=== PATIENT | male | born 1980 | race Caucasian/White ===

== ENCOUNTER 2017-01-20 17:03 | Emergency (ER) | payer BC ==
[2017-01-20] MEDS ORDERED: Sodium Chloride 0.9% 2.5 ML Syringe FLUSH PRN (17:20)
[2017-01-20] MEDS ORDERED: Sodium Chloride 0.9% 10 ML Syringe FLUSH PRN (17:20)
[2017-01-20] MEDS ORDERED: Ondansetron 4 MG/2 ML SDV IVPUSH ONE (17:20)
[2017-01-20] MEDS ORDERED: Sodium Chloride 0.9% 1,000 ML IV ONE (17:20)
--- NOTE | 2017-01-20 17:23 | EDM.PDOC ---
ED HPI GENERAL MEDICAL PROBLEM - General Chief Complaint: Gastrointestinal Problem Stated Complaint: DEHYDRATED/SICK Time Seen by Provider: 01/20/17 17:21 Source of Information: Reports: Patient History Limitations: Reports: No Limitations - History of Present Illness INITIAL COMMENTS - FREE TEXT/NARRATIVE: HISTORY AND PHYSICAL: []36-year-old male presenting with history of 6 days diarrhea History of Present Illness: []Patient has been ill for 6 days of worst pain the last 2. He has been able to keep a little bit of fluid down He has been coughing He states he aches all over Review of Systems: As per history of present illness and below otherwise all systems reviewed and negative. Past medical history: As per history of present illness and as reviewed below otherwise noncontributory. Surgical history: As per history of present illness and as reviewed below otherwise noncontributory. Social history: No reported history of drug or alcohol abuse. Family history: As per history of present illness and as reviewed below otherwise noncontributory. Physical exam: HEENT: Atraumatic, normocehpalic, pupils reactive, negative for conjunctival pallor or scleral icterus, mucous membranes moist, throat clear, neck supple, nontender, trachea midline. Lungs: Clear to auscultation, breath sounds equal bilaterally, chest non tender. Heart: S1S2, regular, negative for clicks, rubs, or JVD. Abdomen: Soft, nondistended, nontender. Negative for masses or hepatossplenmegaly. Negative for costovertebral tenderness. Pelvis: Stable nontender. Genitourinary: Deferred. Rectal: Deferred Extremities: Atraumatic, negative for cords or calf pain. Neurovascular unremarkable. Neuro: Awake, alert, oriented. Cranial nerves II through XII unremarkable. Cerebellum unremarkable. Motor and sensory unremarkable throughout. Exam nonfocal. Diagnostics: [CBC CMP influenza] Therapeutics: [1 L IV fluid Zofran Bentyl] Impression: [Gastroenteritis] Plan: [Discharged home Keep hydrated with sips of fluid every 20 minutes Perception for Bentyl Prescription given for Zofran] Definitive disposition and diagnosis as appropriate pending reevaluation and review of above. Onset: Sudden Duration: Day(s): (6) Location: Reports: Abdomen Generalized Pain Score (Numeric/FACES): 8 - Related Data Allergies Allergy/AdvReac Type Severity Reaction Status Date / Time Penicillins Allergy Rash Verified 01/20/17 17:15 Home Meds: Home Meds Dicyclomine [Bentyl] 20 mg PO TID PRN #12 tablet 01/20/17 [Rx] Ondansetron [Zofran ODT] 4 mg PO Q8H #12 tab.dis 01/20/17 [Rx] Zolpidem Tartrate [Ambien] 5 mg PO BEDTIME PRN 01/20/17 [History] Past Medical History - Past Health History Medical/Surgical History: Denies Medical/Surgical History Social & Family History - Family History Family Medical History: Noncontributory - Tobacco Use Smoking Status *Q: Current Every Day Smoker Years of Tobacco use: 20 Packs/Tins Daily: 1 - Caffeine Use Caffeine Use: Reports: Coffee Other Caffeine Use: occasional - Recreational Drug Use Recreational Drug Use: No ED ROS GENERAL - Review of Systems Review Of Systems: ROS reveals no pertinent complaints other than HPI. ED EXAM, GI/ABD - Physical Exam Exam: See Below (see dictation) Course - Vital Signs Last Recorded V/S: Last Vital Signs Temp 36.3 C 01/20/17 17:12 Pulse 109 H 01/20/17 17:12 Resp 18 01/20/17 17:12 BP 135/102 H 01/20/17 17:12 Pulse Ox 96 01/20/17 17:12 - Orders/Labs/Meds Orders: Active Orders 24 hr Category Date Time Status CULTURE URINE [RM] Stat Lab 01/20/17 17:20 Uncollected DRUG SCREEN, URINE [URCHEM] Stat Lab 01/20/17 17:20 Uncollected UA W/MICROSCOPIC [URIN] Stat Lab 01/20/17 17:20 Uncollected Dicyclomine [Bentyl] Med 01/20/17 18:23 Once 20 mg PO ONETIME ONE Sodium Chloride 0.9% [Saline Flush] Med 01/20/17 17:20 Active 10 ml FLUSH ASDIRECTED PRN Sodium Chloride 0.9% [Saline Flush] Med 01/20/17 17:20 Active 2.5 ml FLUSH ASDIRECTED PRN Saline Lock Insert [OM.PC] Stat Oth 01/20/17 17:20 Ordered Medication Orders Sodium Chloride (Saline Flush) 10 ml FLUSH ASDIRECTED PRN PRN Reason: Keep Vein Open Sodium Chloride (Saline Flush) 2.5 ml FLUSH ASDIRECTED PRN PRN Reason: Keep Vein Open Labs: Laboratory Tests 01/20/17 01/20/17 Range/Units 17:29 17:29 WBC 9.76 (4.0-11.0) K/uL RBC 5.17 (4.50-5.90) M/uL Hgb 16.0 (13.0-17.0) g/dL Hct 44.7 (38.0-50.0) % MCV 86.5 (80.0-98.0) fL MCH 30.9 (27.0-32.0) pg MCHC 35.8 (31.0-37.0) g/dL RDW Std Deviation 40.1 (28.0-62.0) fl RDW Coeff of Carlie 13 (11.0-15.0) % Plt Count 303 (150-400) K/uL MPV 10.10 (7.40-12.00) fL Neut % (Auto) 61.6 (48.0-80.0) % Lymph % (Auto) 32.0 (16.0-40.0) % [place] % (Auto) 5.4 (0.0-15.0) % Eos % (Auto) 0.8 (0.0-7.0) % Baso % (Auto) 0.2 (0.0-1.5) % Neut # (Auto) 6.0 H (1.4-5.7) K/uL Lymph # (Auto) 3.1 H (0.6-2.4) K/uL [place] # (Auto) 0.5 (0.0-0.8) K/uL Eos # (Auto) 0.1 (0.0-0.7) K/uL Baso # (Auto) 0.0 (0.0-0.1) K/uL Nucleated RBC % 0.0 /100WBC Nucleated RBCs # 0 K/uL Sodium 143 (136-146) mmol/L Potassium 3.3 L (3.5-5.1) mmol/L Chloride 110 (98-110) mmol/L Carbon Dioxide 23 (21-31) mmol/L BUN 8 (6.0-23.0) mg/dL Creatinine 0.9 (0.6-1.5) mg/dL Est Cr Clr Drug Dosing 136.92 mL/min Estimated GFR (MDRD) > 60.0 ml/min Glucose 152 H (60-110) mg/dL Calcium 10.1 (8.8-10.8) mg/dL Total Bilirubin 0.5 (0.1-1.5) mg/dL AST 24 (5-40) IU/L ALT 27 (8-54) IU/L Alkaline Phosphatase 65 (40-150) Total Protein 7.4 (6.0-8.0) g/dL Albumin 4.7 (3.5-5.0) g/dL Globulin 2.7 (2.0-3.5) g/dL Albumin/Globulin Ratio 1.7 (1.3-2.8) Meds: Medications Generic Name Dose Route Start Last Admin Trade Name Freq PRN Reason Stop Dose Admin Sodium Chloride 10 ml 01/20/17 17:20 Saline Flush FLUSH ASDIRECTED PRN Keep Vein Open Sodium Chloride 2.5 ml 01/20/17 17:20 Saline Flush FLUSH ASDIRECTED PRN Keep Vein Open Discontinued Medications Generic Name Dose Route Start Last Admin Trade Name Freq PRN Reason Stop Dose Admin Sodium Chloride 1,000 mls @ 999 mls/hr 01/20/17 17:20 01/20/17 17:32 Normal Saline IV 01/20/17 18:20 999 mls/hr STAT ONE Administration Ondansetron HCl 4 mg 01/20/17 17:20 01/20/17 17:36 Zofran IVPUSH 01/20/17 17:21 4 mg ONETIME ONE Administration Departure - Departure Time of Disposition: 18:24 Disposition: Home, Self-Care 01 Condition: Good Clinical Impression: Gastroenteritis - Discharge Information Prescriptions: Dicyclomine [Bentyl] 20 mg PO TID PRN #12 tablet PRN Reason: Cramping Ondansetron [Zofran ODT] 4 mg PO Q8H #12 tab.dis Referrals: PCP,None [Primary Care Provider] - Forms: ED Department Discharge Additional Instructions: The following information is given to patients seen in the emergency department who are being discharged to home. This information is to outline your options for follow-up care. We provide all patients seen in our emergency department with a follow-up referral. The need for follow-up, as well as the timing and circumstances, are variable depending upon the specifics of your emergency department visit. If you don't have a primary care physician on staff, we will provide you with a referral. We always advise you to contact your personal physician following an emergency department visit to inform them of the circumstance of the visit and for follow-up with them and/or the need for any referrals to a consulting specialist. The emergency department will also refer you to a specialist when appropriate. This referral assures that you have the opportunity for followup care with a specialist. All of these measure are taken in an effort to provide you with optimal care, which includes your followup. Under all circumstances we always encourage you to contact your private physician who remains a resource for coordinating your care. When calling for followup care, please make the office aware that this follow-up is from your recent emergency room visit. If for any reason you are refused follow-up, please contact the [facility] emergency department at and asked to speak to the emergency department charge nurse. Prescriptions have been given to for nausea and for abdominal cramping these have been sent electronically to your pharmacy Home and rest Sips of fluid every 20 minutes to keep hydrated Follow-up with your primary care next week - My Orders Last 24 Hours: My Active Orders 01/20/17 17:20 CULTURE URINE [RM] Stat DRUG SCREEN, URINE [URCHEM] Stat UA W/MICROSCOPIC [URIN] Stat Sodium Chloride 0.9% [Saline Flush] 10 ml FLUSH ASDIRECTED PRN Sodium Chloride 0.9% [Saline Flush] 2.5 ml FLUSH ASDIRECTED PRN Saline Lock Insert [OM.PC] Stat 01/20/17 18:23 Dicyclomine [Bentyl] 20 mg PO ONETIME ONE - Assessment/Plan Last 24 Hours: My Active Orders 01/20/17 17:20 CULTURE URINE [RM] Stat DRUG SCREEN, URINE [URCHEM] Stat UA W/MICROSCOPIC [URIN] Stat Sodium Chloride 0.9% [Saline Flush] 10 ml FLUSH ASDIRECTED PRN Sodium Chloride 0.9% [Saline Flush] 2.5 ml FLUSH ASDIRECTED PRN Saline Lock Insert [OM.PC] Stat 01/20/17 18:23 Dicyclomine [Bentyl] 20 mg PO ONETIME ONE
[2017-01-20 17:58] LABS: CHLORIDE,CL 110 mmol/L (98-110); SODIUM,NA 143 mmol/L (136-146)
[2017-01-20] MEDS ORDERED: Dicyclomine 10 MG Cap PO ONE (18:23)
[2017-01-20 18:46] VITALS: BP 135/89
== END 2017-01-20 18:40 | disposition home or self-care (01) ==
LOC: MW.ED 17:03
DX: K52.9 Noninfective gastroenteritis and colitis, unspecified (principal); F17.210 Nicotine dependence, cigarettes, uncomplicated
CPT/HCPCS: 36415; 80053; 85025; 87804; 96361; 96374; 99283; A9270; J2405; J7040

== ENCOUNTER 2017-05-10 10:17 | Day surgery (SDC) | payer BC ==
[2017-05-10] MEDS ORDERED: Sodium Chloride 0.9% 2.5 ML Syringe FLUSH PRN (10:47)
[2017-05-10] MEDS ORDERED: Sodium Chloride 0.9% 10 ML Syringe FLUSH PRN (10:47)
[2017-05-10] MEDS ORDERED: Ketorolac 30 MG/ML SDV IVPUSH ONE (10:48)
[2017-05-10] MEDS ORDERED: Ondansetron 4 MG/2 ML SDV IVPUSH ONE (10:48)
[2017-05-10] MEDS ORDERED: Sodium Chloride 0.9% 1,000 ML IV ONE (10:48)
[2017-05-10] MEDS ORDERED: Morphine 2 MG/ML Syringe IVPUSH ONE (10:48)
--- NOTE | 2017-05-10 10:51 | EDM.PDOC ---
ED HPI GENERAL MEDICAL PROBLEM - General Chief Complaint: Gastrointestinal Problem Stated Complaint: VOMITTING Time Seen by Provider: 05/10/17 10:44 - History of Present Illness INITIAL COMMENTS - FREE TEXT/NARRATIVE: HISTORY AND PHYSICAL: History of present illness: The patient is a 36-year-old male with no GI history and no abdominal surgical history who presents with a three-day history of abdominal cramping and watery stools and has now progressed to intractable vomiting today. Patient said he has had nausea for the prior 2 days but today starting last evening he was having intractable nausea and vomiting. He says he has been vomiting so much that he since eating some streaks of blood but not copious blood or clots. The diarrhea has not been black or bloody. He has abdominal cramping which is in the middle part of his abdomen is benign ongoing with the diarrhea. He has felt hot but has not taken his temperature at home and he has had no upper respiratory symptoms no chest pain no shortness of breath no flank pain or urinary issues. He denies any ill contacts recent travel or new foods. Review of systems: As per history of present illness and below otherwise all systems reviewed and negative. Past medical history: As per history of present illness and as reviewed below otherwise noncontributory. Surgical history: As per history of present illness and as reviewed below otherwise noncontributory. Social history: No reported history of drug or alcohol abuse. Family history: As per history of present illness and as reviewed below otherwise noncontributory. Physical exam: Gen.: Well-developed thin man who is nontoxic and looks somewhat uncomfortable in the room but is speaking clearly and easily and vital signs have been reviewed by me HEENT: Atraumatic, normocephalic, pupils reactive, negative for conjunctival pallor or scleral icterus, mucous membranes tacky, throat clear, neck supple, nontender, trachea midline. Lungs: Clear to auscultation, breath sounds equal bilaterally, chest nontender. Heart: S1S2, regular, negative for clicks, rubs, or JVD. Abdomen: Soft, nondistended, mild mid abdominal pain on deep palpation without rebound or guarding and bowel sounds are slightly hyperactive Negative for masses or hepatosplenomegaly. Pelvis: Stable nontender. Genitourinary: Deferred. Rectal: Deferred. Extremities: Atraumatic, negative for cords or calf pain. Neurovascular unremarkable. Neuro: Awake, alert, oriented. Cranial nerves II through XII unremarkable. Cerebellum unremarkable. Motor and sensory unremarkable throughout. Exam nonfocal. Diagnostics: CBC CMP amylase lipase UA CT scan of the abdomen and pelvis Therapeutics: IV fluids Zofran Toradol morphine Dilaudid Please note the patient has not had any vomiting or diarrhea while in the ED but still complains of persistent abdominal cramping despite morphine and Toradol. I will give a dose of Dilaudid and perform CT scan of the abdomen and pelvis. We will start giving the patient a popsicle once he returns from CT Patient continues to feel improved. I have received the CAT scan results indicating an acute appendicitis without rupture and I have discussed these results with the patient and also with Dr. Rooney our surgeon on-call at [phone]. He wants the patient admitted to same-day surgery and given maintenance IV fluids and Mefoxin. Patient has not had anything to eat or drink today. Impression: Vomiting and diarrhea with abdominal cramping, acute appendicitis Definitive disposition and diagnosis as appropriate pending reevaluation and review of above. lower abdominal Pain Score (Numeric/FACES): 7 - Related Data Allergies Allergy/AdvReac Type Severity Reaction Status Date / Time Penicillins Allergy Rash Verified 05/10/17 10:22 Home Meds: Home Meds Zolpidem Tartrate [Ambien] 5 mg PO BEDTIME PRN 01/20/17 [History] Past Medical History - Past Health History Medical/Surgical History: Denies Medical/Surgical History - Infectious Disease History Infectious Disease History: Reports: Chicken Pox Social & Family History - Family History Family Medical History: Noncontributory - Tobacco Use Smoking Status *Q: Current Every Day Smoker Years of Tobacco use: 15 Packs/Tins Daily: 1 - Caffeine Use Caffeine Use: Reports: Energy Drinks Other Caffeine Use: occasional - Recreational Drug Use Recreational Drug Use: No ED ROS GENERAL - Review of Systems Review Of Systems: ROS reveals no pertinent complaints other than HPI. ED EXAM, GENERAL - Physical Exam Exam: See Below (See dictation) Course - Vital Signs Last Recorded V/S: Last Vital Signs Temp 36.2 C 05/10/17 10:24 Pulse 84 05/10/17 10:24 Resp 18 05/10/17 10:24 BP 139/81 05/10/17 10:24 Pulse Ox 97 05/10/17 10:24 - Orders/Labs/Meds Orders: Active Orders 24 hr Category Date Time Status Patient Status [ADT] Stat ADT 05/10/17 13:34 Ordered Communication Order [RC] STAT Care 05/10/17 10:48 Active Lactated Ringers @ 150 MLS/HR(1,000ml) Med 05/10/17 13:45 Ordered Lactated Ringers [Ringers, Lactated] 1,000 ml IV ASDIRECTED Sodium Chloride 0.9% [Saline Flush] Med 05/10/17 10:47 Active 10 ml FLUSH ASDIRECTED PRN Sodium Chloride 0.9% [Saline Flush] Med 05/10/17 10:47 Active 2.5 ml FLUSH ASDIRECTED PRN cefOXitin [Mefoxin in Dextrose,Iso-Osm 1 GM/50 ML] 1 gm Med 05/10/17 13:34 Ordered Premix Bag 1 bag IV ONETIME Saline Lock Insert [OM.PC] Stat Oth 05/10/17 10:47 Ordered Medication Orders Lactated Ringer's (Ringers, Lactated) 1,000 mls @ 150 mls/hr IV ASDIRECTED JOSE Sodium Chloride (Saline Flush) 10 ml FLUSH ASDIRECTED PRN PRN Reason: Keep Vein Open Sodium Chloride (Saline Flush) 2.5 ml FLUSH ASDIRECTED PRN PRN Reason: Keep Vein Open Labs: Laboratory Tests 05/10/17 05/10/17 05/10/17 Range/Units 10:35 11:03 11:03 WBC 11.16 H (4.0-11.0) K/uL RBC 5.11 (4.50-5.90) M/uL Hgb 15.6 (13.0-17.0) g/dL Hct 43.1 (38.0-50.0) % MCV 84.3 (80.0-98.0) fL MCH 30.5 (27.0-32.0) pg MCHC 36.2 (31.0-37.0) g/dL RDW Std Deviation 37.3 (28.0-62.0) fl RDW Coeff of Carlie 12 (11.0-15.0) % Plt Count 290 (150-400) K/uL MPV 10.00 (7.40-12.00) fL Neut % (Auto) 76.8 (48.0-80.0) % Lymph % (Auto) 18.8 (16.0-40.0) % [place] % (Auto) 3.8 (0.0-15.0) % Eos % (Auto) 0.4 (0.0-7.0) % Baso % (Auto) 0.2 (0.0-1.5) % Neut # (Auto) 8.6 H (1.4-5.7) K/uL Lymph # (Auto) 2.1 (0.6-2.4) K/uL [place] # (Auto) 0.4 (0.0-0.8) K/uL Eos # (Auto) 0.0 (0.0-0.7) K/uL Baso # (Auto) 0.0 (0.0-0.1) K/uL Nucleated RBC % 0.0 /100WBC Nucleated RBCs # 0 K/uL Sodium 140 (136-146) mmol/L Potassium 3.7 (3.5-5.1) mmol/L Chloride 108 (98-110) mmol/L Carbon Dioxide 21 (21-31) mmol/L BUN 10 (6.0-23.0) mg/dL Creatinine 0.8 (0.6-1.5) mg/dL Est Cr Clr Drug Dosing 152.76 mL/min Estimated GFR (MDRD) > 60.0 ml/min Glucose 108 (60-110) mg/dL Calcium 9.8 (8.8-10.8) mg/dL Total Bilirubin 0.6 (0.1-1.5) mg/dL AST 25 (5-40) IU/L ALT 25 (8-54) IU/L Alkaline Phosphatase 68 (40-150) Total Protein 7.1 (6.0-8.0) g/dL Albumin 4.4 (3.5-5.0) g/dL Globulin 2.7 (2.0-3.5) g/dL Albumin/Globulin Ratio 1.6 (1.3-2.8) Amylase 45 (10-90) U/L Lipase 17 (7-80) U/L Urine Color YELLOW Urine Appearance CLEAR Urine pH 6.0 (5.0-8.0) Ur Specific [place] 1.010 (1.001-1.035) Urine Protein NEGATIVE (NEGATIVE) mg/dL Urine Glucose (UA) NEGATIVE (NEGATIVE) mg/dL Urine Ketones NEGATIVE (NEGATIVE) mg/dL Urine Occult Blood NEGATIVE (NEGATIVE) Urine Nitrite NEGATIVE (NEGATIVE) Urine Bilirubin NEGATIVE (NEGATIVE) Urine Urobilinogen 0.2 (<2.0) EU/dL Ur Leukocyte Esterase NEGATIVE (NEGATIVE) Urine RBC 0-1 (0-2/HPF) Urine WBC 0-1 (0-5/HPF) Ur Epithelial Cells RARE (NONE-FEW) Urine Bacteria RARE (NEGATIVE) Meds: Medications Generic Name Dose Route Start Last Admin Trade Name Freq PRN Reason Stop Dose Admin Lactated Ringer's 1,000 mls @ 150 mls/hr 05/10/17 13:45 Ringers, Lactated IV ASDIRECTED JOSE Sodium Chloride 10 ml 05/10/17 10:47 Saline Flush FLUSH ASDIRECTED PRN Keep Vein Open Sodium Chloride 2.5 ml 05/10/17 10:47 Saline Flush FLUSH ASDIRECTED PRN Keep Vein Open Discontinued Medications Generic Name Dose Route Start Last Admin Trade Name Freq PRN Reason Stop Dose Admin Hydromorphone HCl 1 mg 05/10/17 12:03 05/10/17 12:09 Dilaudid IVPUSH 05/10/17 12:04 1 mg ONETIME ONE Administration Sodium Chloride 1,000 mls @ 999 mls/hr 05/10/17 10:48 05/10/17 11:09 Normal Saline IV 05/10/17 11:48 999 mls/hr STAT ONE Administration Iopamidol 100 ml 05/10/17 12:46 Isovue Multipack-370 (76%) IVPUSH 05/10/17 12:47 ONETIME STA Ketorolac Tromethamine 30 mg 05/10/17 10:48 05/10/17 11:14 Toradol IVPUSH 05/10/17 10:49 30 mg ONETIME ONE Administration Morphine Sulfate 2 mg 05/10/17 10:48 05/10/17 11:15 Morphine IVPUSH 05/10/17 10:49 2 mg ONETIME ONE Administration Ondansetron HCl 4 mg 05/10/17 10:48 05/10/17 11:14 Zofran IVPUSH 05/10/17 10:49 4 mg ONETIME ONE Administration Departure - Departure Time of Disposition: 13:36 Disposition: Still A Patient 30 Condition: Good Clinical Impression: Vomiting, Diarrhea, Appendicitis - Discharge Information Referrals: PCP,None [Primary Care Provider] - Forms: ED Department Discharge - My Orders Last 24 Hours: My Active Orders 05/10/17 10:47 Sodium Chloride 0.9% [Saline Flush] 10 ml FLUSH ASDIRECTED PRN Sodium Chloride 0.9% [Saline Flush] 2.5 ml FLUSH ASDIRECTED PRN Saline Lock Insert [OM.PC] Stat 05/10/17 10:48 Communication Order [RC] STAT 05/10/17 13:34 Patient Status [ADT] Stat cefOXitin [Mefoxin in Dextrose,Iso-Osm 1 GM/50 ML] 1 gm Premix Bag 1 bag IV ONETIME 05/10/17 13:45 Lactated Ringers @ 150 MLS/HR(1,000ml) Lactated Ringers [Ringers, Lactated] 1, 000 ml IV ASDIRECTED - Assessment/Plan Last 24 Hours: My Active Orders 05/10/17 10:47 Sodium Chloride 0.9% [Saline Flush] 10 ml FLUSH ASDIRECTED PRN Sodium Chloride 0.9% [Saline Flush] 2.5 ml FLUSH ASDIRECTED PRN Saline Lock Insert [OM.PC] Stat 05/10/17 10:48 Communication Order [RC] STAT 05/10/17 13:34 Patient Status [ADT] Stat cefOXitin [Mefoxin in Dextrose,Iso-Osm 1 GM/50 ML] 1 gm Premix Bag 1 bag IV ONETIME 05/10/17 13:45 Lactated Ringers @ 150 MLS/HR(1,000ml) Lactated Ringers [Ringers, Lactated] 1, 000 ml IV ASDIRECTED
[2017-05-10 11:45] LABS: CHLORIDE,CL 108 mmol/L (98-110); SODIUM,NA 140 mmol/L (136-146)
[2017-05-10] MEDS ORDERED: HYDROmorphone 2 MG/ML Syringe IVPUSH ONE ×2 (12:03→14:10)
[2017-05-10] MEDS ORDERED: Iopamidol 755 MG/ML 500 ML Multipack Bottle IVPUSH STA (12:46)
--- NOTE | 2017-05-10 13:24 | CT ---
CT of the abdomen and pelvis with contrast. HISTORY: Pain TECHNIQUE: Axial CT images were obtained of the abdomen and pelvis following administration of 100 mL of Isovue-370 in the right arm without complication. Coronal and sagittal reconstructions obtained. FINDINGS: The lung bases are clear, no pleural effusion. The liver, spleen, adrenal glands, and pancreas appear normal. The gallbladder is normal. No bulky re troperitoneal lymphadenopathy or abdominal ascites. The kidneys enhance and function symmetrically without evidence of obstructive uropathy. The large and small bowel are normal in caliber without evidence of obstruction. The enterocele tip i s thickened measuring up to 1.3 cm. Mild periappendiceal stranding. No adjacent free air or free flui d. The urinary bladder is normal. No bulky pelvic lymphadenopathy No suspicious osseous abnormalities identified. 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 IMPRESSION: 1. Acute appendicitis without evidence of rupture.
[2017-05-10] MEDS ORDERED: cefOXitin 1 GM in Premix Bag 1 BAG IV ONE (13:34)
[2017-05-10] MEDS ORDERED: Lactated Ringers 1,000 ML IV SCH (13:45)
[2017-05-10] MEDS ORDERED: Lidocaine 2% 5 ML SDV ONE (14:31)
[2017-05-10] MEDS ORDERED: Rocuronium 10 MG/ML 10 ML Syringe ONE (14:31)
[2017-05-10] MEDS ORDERED: Ondansetron 4 MG/2 ML SDV ONE (14:31)
[2017-05-10] MEDS ORDERED: Midazolam 1 MG/ML 2 ML SDV ONE (14:32)
[2017-05-10] MEDS ORDERED: Succinylcholine/Normal Saline 200 MG/10 ML Syringe ONE (14:32)
[2017-05-10] MEDS ORDERED: fentaNYL 250 MCG/5 ML SDV ONE (14:32)
[2017-05-10] MEDS ORDERED: Propofol 200 MG/20 ML SDV ONE (14:32)
[2017-05-10] MEDS ORDERED: Bupivacaine 0.5% 10 ML SDV ONE (14:34)
[2017-05-10] MEDS ORDERED: ceFAZolin 1 GM Vial ONE (14:35)
--- NOTE | 2017-05-10 14:39 | PCM.CONS ---
H&P History of Present Illness - General Date of Service: 05/10/17 Admit Problem/Dx: Admission Diagnosis/Problem Admission Diagnosis/Problem Appendicitis Source of Information: Patient History Limitations: Reports: No Limitations - History of Present Illness Onset of Symptoms: Reports: Gradual Symptom Onset Date: 05/09/17 Symptom Onset Time: 20:00 Location: Reports: Abdomen Quality: Reports: Ache, Pressure Improves with: Reports: Rest Worsens with: Reports: Eating, Movement Context: Reports: Sick Contact Associated Symptoms: Reports: Loss of Appetite, Nausea/Vomiting. Denies: Fever/ Chills, Shortness of Breath lower abdominal Pain Score (Numeric/FACES): 7 - Related Data Allergies/Adverse Reactions: Allergies Allergy/AdvReac Type Severity Reaction Status Date / Time Penicillins Allergy Rash Verified 05/10/17 10:22 Home Medications: Home Meds Zolpidem Tartrate [Ambien] 5 mg PO BEDTIME PRN 01/20/17 [History] Past Medical History - Past Health History Medical/Surgical History: Denies Medical/Surgical History - Infectious Disease History Infectious Disease History: Reports: Chicken Pox - Past Surgical History Musculoskeletal Surgical History: Reports: Arthroscopic Procedure, Other (See Below) (Tendon repair left hand. Bilateral partial claviculectomy.) Social & Family History - Family History Family Medical History: Noncontributory - Tobacco Use Smoking Status *Q: Current Every Day Smoker Tobacco Use Within Last Twelve Months: Smokeless Tobacco Years of Tobacco use: 15 Packs/Tins Daily: 1 Used Tobacco, but Quit: No - Caffeine Use Caffeine Use: Reports: Energy Drinks Other Caffeine Use: occasional - Recreational Drug Use Recreational Drug Use: No H&P Review of Systems - Review of Systems: Review Of Systems: See Below General: Reports: Decreased Appetite. Denies: Fever, Chills, Night Sweats HEENT: Reports: No Symptoms Pulmonary: Reports: No Symptoms Cardiovascular: Reports: No Symptoms Gastrointestinal: Reports: Abdominal Pain, Anorexia, Diarrhea, Decreased Appetite, Nausea, Vomiting Genitourinary: Reports: No Symptoms Musculoskeletal: Reports: No Symptoms Skin: Reports: No Symptoms Psychiatric: Reports: No Symptoms Neurological: Reports: No Symptoms Hematologic/Lymphatic: Reports: No Symptoms Immunologic: Reports: No Symptoms Exam - Exam Exam: See Below - Vital Signs Vital Signs: Last Vital Signs Temp 97.1 F 05/10/17 10:24 Pulse 84 05/10/17 10:24 Resp 18 05/10/17 10:24 BP 139/81 05/10/17 10:24 Pulse Ox 97 05/10/17 10:24 Weight: 184 lb 11.958 oz - Exam General: Alert, Oriented, Cooperative, Mild Distress HEENT: Conjunctiva Clear, EOMI, Hearing Intact, PERRLA. No: Scleral Icterus Neck: Supple, Trachea Midline Lungs: Clear to Auscultation, Normal Respiratory Effort Cardiovascular: Regular Rate, Regular Rhythm GI/Abdominal Exam: Normal Bowel Sounds, Soft, No Distention, Rebound, Tender ( RLQ). No: Guarding, Rigid (Male) Exam: No Hernia, Deferred Rectal (Males) Exam: Deferred Back Exam: Normal Inspection Extremities: Normal Inspection, Normal Range of Motion Peripheral Pulses: 4+: Posterior Tibial (L), Posterior Tibial (R), Dorsalis Pedis (L), Dorsalis Pedis (R) Skin: Warm, Dry, Intact Neurological: Cranial Nerves Intact Neuro Extensive - Mental Status: Alert, Oriented x3 Psychiatric: Alert, Normal Affect, Normal Mood - Patient Data Lab Results Last 24 hrs: Laboratory Results - last 24 hr 05/10/17 05/10/17 05/10/17 Range/Units 10:35 11:03 11:03 WBC 11.16 H (4.0-11.0) K/uL RBC 5.11 (4.50-5.90) M/uL Hgb 15.6 (13.0-17.0) g/dL Hct 43.1 (38.0-50.0) % MCV 84.3 (80.0-98.0) fL MCH 30.5 (27.0-32.0) pg MCHC 36.2 (31.0-37.0) g/dL RDW Std Deviation 37.3 (28.0-62.0) fl RDW Coeff of Carlie 12 (11.0-15.0) % Plt Count 290 (150-400) K/uL MPV 10.00 (7.40-12.00) fL Neut % (Auto) 76.8 (48.0-80.0) % Lymph % (Auto) 18.8 (16.0-40.0) % [place] % (Auto) 3.8 (0.0-15.0) % Eos % (Auto) 0.4 (0.0-7.0) % Baso % (Auto) 0.2 (0.0-1.5) % Neut # (Auto) 8.6 H (1.4-5.7) K/uL Lymph # (Auto) 2.1 (0.6-2.4) K/uL [place] # (Auto) 0.4 (0.0-0.8) K/uL Eos # (Auto) 0.0 (0.0-0.7) K/uL Baso # (Auto) 0.0 (0.0-0.1) K/uL Nucleated RBC % 0.0 /100WBC Nucleated RBCs # 0 K/uL Sodium 140 (136-146) mmol/L Potassium 3.7 (3.5-5.1) mmol/L Chloride 108 (98-110) mmol/L Carbon Dioxide 21 (21-31) mmol/L BUN 10 (6.0-23.0) mg/dL Creatinine 0.8 (0.6-1.5) mg/dL Est Cr Clr Drug Dosing 152.76 mL/min Estimated GFR (MDRD) > 60.0 ml/min Glucose 108 (60-110) mg/dL Calcium 9.8 (8.8-10.8) mg/dL Total Bilirubin 0.6 (0.1-1.5) mg/dL AST 25 (5-40) IU/L ALT 25 (8-54) IU/L Alkaline Phosphatase 68 (40-150) Total Protein 7.1 (6.0-8.0) g/dL Albumin 4.4 (3.5-5.0) g/dL Globulin 2.7 (2.0-3.5) g/dL Albumin/Globulin Ratio 1.6 (1.3-2.8) Amylase 45 (10-90) U/L Lipase 17 (7-80) U/L Urine Color YELLOW Urine Appearance CLEAR Urine pH 6.0 (5.0-8.0) Ur Specific [place] 1.010 (1.001-1.035) Urine Protein NEGATIVE (NEGATIVE) mg/dL Urine Glucose (UA) NEGATIVE (NEGATIVE) mg/dL Urine Ketones NEGATIVE (NEGATIVE) mg/dL Urine Occult Blood NEGATIVE (NEGATIVE) Urine Nitrite NEGATIVE (NEGATIVE) Urine Bilirubin NEGATIVE (NEGATIVE) Urine Urobilinogen 0.2 (<2.0) EU/dL Ur Leukocyte Esterase NEGATIVE (NEGATIVE) Urine RBC 0-1 (0-2/HPF) Urine WBC 0-1 (0-5/HPF) Ur Epithelial Cells RARE (NONE-FEW) Urine Bacteria RARE (NEGATIVE) Result Diagrams: 05/10/17 11:03 05/10/17 11:03 Imaging Impressions Last 24 hrs: CT report suggests early nonruptured appendicitis with no fluid collection. There is periappendiceal fat stranding. Consult PN Assessment/Plan Procedures: Procedures COMPLETE CBC W/AUTO DIFF WBC (01/20/17) COMPREHEN METABOLIC PANEL (01/20/17) EMERGENCY DEPT VISIT (01/20/17) HYDRATE IV INFUSION ADD-ON (01/20/17) INFLUENZA ASSAY W/OPTIC (01/20/17) ROUTINE VENIPUNCTURE (01/20/17) THER/PROPH/DIAG INJ IV PUSH (01/20/17) (1) Appendicitis SNOMED Code(s): 24540384 Code(s): K37 - UNSPECIFIED APPENDICITIS Priority: High Current Visit: Yes Problem List Initiated/Reviewed/Updated: Yes My Orders Last 24 Hours: My Active Orders 05/10/17 06:00 Antiembolic Hose [OM.PC] PER UNIT ROUTINE 05/10/17 14:30 Alfred Catheter Insertion [Insert Urinary Catheter] [OM.PC] Q24H Oxygen Therapy [RC] PRN Pulse Oximetry [RC] INTERMITTENT Skin Preparation [RC] .PREOP Urinary Catheter Assessment [RC] ASDIRECTED Vital Signs [RC] PER UNIT ROUTINE Sequential Compression Device [OM.PC] Routine Resuscitation Status Routine 05/10/17 14:31 Antiembolic Devices [RC] PER UNIT ROUTINE Urinary Catheter Assessment [RC] ASDIRECTED 05/10/17 14:45 cefOXitin [Mefoxin in Dextrose,Iso-Osm 1 GM/50 ML] 1 gm Premix Bag 1 bag IV ONETIME 05/10/17 Lunch Nothing Per Oral Diet [DIET] 05/11/17 06:00 Antiembolic Hose [OM.PC] PER UNIT ROUTINE Plan: Laparoscopic appendectomy, possible open appendectomy. Both operative procedures, along with the risks, including, but not limited to, bleeding, infection, pneumonia, deep venous thrombosis, pulmonary emboli, myocardial infarction, and adjacent organ injury have been reviewed with the patient who voices understanding, offers no questions and agrees to proceed.
[2017-05-10] MEDS ORDERED: cefOXitin 1 GM in Premix Bag 1 BAG IV SCH (14:45)
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
[2017-05-10] MEDS ORDERED: cefOXitin 1 GM Vial ONE (17:28)
[2017-05-10] MEDS ORDERED: diphenhydrAMINE 50 MG/ML SDV ONE (17:48)
[2017-05-10] MEDS ORDERED: Dexamethasone 4 MG/ML 5 ML MDV ONE (17:48)
[2017-05-10] MEDS ORDERED: HYDROmorphone 2 MG/ML Syringe ONE ×2 (18:03→18:57)
[2017-05-10] MEDS ORDERED: Ketorolac 30 MG/ML SDV ONE (18:27)
[2017-05-10] MEDS: fentaNYL 100 MCG/2 ML SDV IVPUSH PRN ×2 (18:50→18:55)
[2017-05-10] MEDS ORDERED: Acetaminophen 325 MG Tab PO PRN (18:59)
[2017-05-10] MEDS: HYDROmorphone 2 MG/ML Syringe IVPUSH PRN ×2 (19:00→19:10)
[2017-05-10] MEDS ORDERED: HYDROmorphone 1 MG/ML Syringe IV PRN (19:00)
--- NOTE | 2017-05-10 19:05 | PCM.OPNOTE ---
- General Post-Op/Procedure Note Date of Surgery/Procedure: 05/10/17 Operative Procedure(s): Laparoscopic appendectomy Findings: Acute nonruptured appendicitis Pre Op Diagnosis: Acute abdomen Post-Op Diagnosis: Acute appendicitis Anesthesia Technique: General ET Tube (ASA IIE) Primary Surgeon: Antolin Rooney Fluid Replacement, Intraop: 2,000 Output, Urine Amount: 100 EBL in mLs: 10 Condition: Good Free Text/Narrative:: Intake & Output 05/10/17 05/10/17 05/10/17 03:59 11:59 19:59 Intake Total 40 Output Total 0 Balance 40 Dictation [id number] CPT CODE 44358
--- NOTE | 2017-05-10 19:47 | PCM.POSTAN ---
POST ANESTHESIA ASSESSMENT - MENTAL STATUS Mental Status: Alert, Oriented - VITAL SIGNS Pulse Rate: 59 SaO2: 98 Resp Rate: 14 Blood Pressure: 116/74 - RESPIRATORY Respiratory Status: Respiratory Rate WNL, Airway Patent, O2 Saturation Stable, Supplemental Oxygen - CARDIOVASCULAR CV Status: Pulse Rate WNL, Blood Pressure Stable - GASTROINTESTINAL GI Status: No Symptoms - PAIN Pain Score: 3 (Pt states feeling much better and shoulder pain under control) - POST OP HYDRATION Hydration Status: Adequate & Stable - OBSERVATIONS Free Text/Narrative:: Pt awake and stable. Per his request I spoke with his , Rebecca, and explained his surgery went well and the plan to keep is Alfred catheter overnight. No anesthesia complications.
--- NOTE | 2017-05-10 19:50 | PCM48HPAN ---
Post Anesthesia Note - EVALUATION WITHIN 48HRS OF ANESTHETIC Vital Signs in Normal Range: Yes Patient Participated in Evaluation: Yes Respiratory Function Stable: Yes Airway Patent: Yes Cardiovascular Function Stable: Yes Hydration Status Stable: Yes Pain Control Satisfactory: Yes Nausea and Vomiting Control Satisfactory: Yes Mental Status Recovered: Yes
[2017-05-10] MEDS: Metoclopramide 10 MG/2 ML SDV IVPUSH SCH (20:33)
[2017-05-10] MEDS: Morphine 10 MG/ML Syringe IVPUSH PRN (21:18)
[2017-05-10] MEDS: Lactated Ringers 1,000 ML IV SCH (21:20)
[2017-05-10] MEDS: Acetaminophen/HYDROcodone 325-5 MG Tab PO PRN (21:24)
[2017-05-10] MEDS: cefOXitin 1 GM in Premix Bag 1 BAG IV SCH (21:29)
--- NOTE | 2017-05-10 22:23 | OR ---
SURGEON: Antolin Rooney M.D. DATE OF PROCEDURE: 05/10/2017 OPERATION PERFORMED: Laparoscopic appendectomy. ANESTHESIA: General endotracheal. ASA CLASSIFICATION: IIE. PREOPERATIVE DIAGNOSIS: Acute abdomen. POSTOPERATIVE DIAGNOSIS: Acute appendicitis. INTRAOPERATIVE FLUID REPLACEMENT: 2000 mL of crystalloid. INTRAOPERATIVE URINARY OUTPUT: 100 mL. ESTIMATED BLOOD LOSS: 10 mL. INTRAOPERATIVE CONSULTATION: With Dr. Rubin, for difficulty passing the Alfred catheter. DESCRIPTION OF PROCEDURE: The patient was taken to the operating room and placed on the operating table in the supine position. Time-out was called for appropriate identification of the patient and procedure. Thigh-high TEDs and sequential compression boots were placed. Following satisfactory attainment of general endotracheal anesthesia, attempt was made to place the Alfred catheter. This was not able to be passed and intraoperative consultation was obtained with Dr. Rubin, who was able to pass a 14-[place] Cou[place] tip catheter. No blood was noted in the Alfred catheter and it did drain clear yellow urine. Once that was accomplished, the abdomen was prepped with DuraPrep solution and sterile drapes were applied. The skin just above the umbilicus was infiltrated with 0.5% Marcaine solution. The skin incision was made and deepened into the subcutaneous tissue obtaining hemostasis with the use of electrocautery. The Veress needle was introduced into the peritoneal cavity. The saline drop test was positive. Carbon dioxide pneumoperitoneum was established with the release set at 13 cm of water. Once we had a satisfactory pneumoperitoneum, a 5 mm camera and port were placed through the supraumbilical incision. The patient was now positioned with his head down and rolled to the left. Under camera vision, 12 mm suprapubic and 5 mm left lower quadrant ports were placed. Each incision was preemptively infiltrated with 0.5% Marcaine solution. The appendix was easily grasped. The tip of the appendix was quite enlarged, but the base was normal in appearance. The mesoappendix was taken down with the Harmonic scalpel. The base of the appendix was doubly ligated with 0 PDS endo-loops. The appendix was then divided using the Harmonic Scalpel and the appendix immediately placed in the Endopouch. The right lower quadrant was inspected for hemostasis. No bleeding was noted and the endo-loops appeared secure. The right lower quadrant was irrigated with sterile saline solution and all fluid was aspirated. The patient was again positioned in a neutral position and under camera vision, the Endopouch containing appendix and 12 mm port were removed. The left lower quadrant port was removed under camera vision and finally the supraumbilical camera port were removed. The wounds were inspected for hemostasis and bleeding sites were electrocoagulated. All incisions were closed with subcutaneous 3-0 Vicryl and subcuticular 4-0 Monocryl. All incisions were Steri-Stripped and dressed with sterile Tegaderm pads. Sponge, needle, and instrument counts were all correct. The patient tolerated the procedure well. Per Dr. Rubin's instructions, the Alfred catheter will be left in tonight and removed tomorrow morning. Following emergence from anesthesia and extubation, the patient was taken to recovery room in satisfactory condition. TOM PAREDES /[id number]
[2017-05-11] MEDS: Morphine 10 MG/ML Syringe IVPUSH PRN ×3 (00:14→08:26)
[2017-05-11] MEDS: Metoclopramide 10 MG/2 ML SDV IVPUSH SCH ×2 (00:14→06:01)
[2017-05-11] MEDS: cefOXitin 1 GM in Premix Bag 1 BAG IV SCH (05:45)
[2017-05-11] MEDS: Acetaminophen/HYDROcodone 325-5 MG Tab PO PRN ×2 (05:45→09:46)
[2017-05-11] MEDS: Lactated Ringers 1,000 ML IV SCH (05:51)
--- NOTE | 2017-05-11 08:38 | PCM.SURGPN ---
- General Info Date of Service: 05/11/17 POD#: 1 Post-Op Diagnosis: Acute appendicitis without rupture Admission Diagnosis/Problem: Appendicitis Functional Status: Reports: Pain Controlled (Although still complains of some abdominal discomfort. Pain is different than preoperatively.), Tolerating Diet , Ambulating, Urinating - Review of Systems General: Reports: Appetite. Denies: Fever, Weakness, Fatigue, Malaise, Night Sweats HEENT: Reports: No Symptoms Pulmonary: Denies: Shortness of Breath, Cough Cardiovascular: Denies: Chest Pain Gastrointestinal: Reports: Abdominal Pain (Different than preop), Flatus. Denies: Decreased Appetite, Diarrhea, Difficulty Swallowing, Nausea, Vomiting Genitourinary: Denies: Dysuria, Frequency, Burning, Pain, Urgency Musculoskeletal: Reports: No Symptoms Skin: Reports: No Symptoms Neurological: Reports: No Symptoms Psychiatric: Reports: No Symptoms - Patient Data Vitals - Most Recent: Last Vital Signs Temp 98.1 F 05/11/17 06:00 Pulse 55 L 05/11/17 06:00 Resp 16 05/11/17 06:00 BP 96/49 L 05/11/17 06:00 Pulse Ox 96 05/11/17 06:00 Weight - Most Recent: 184 lb 11.958 oz I&O - Last 24 Hours: Intake & Output 05/10/17 05/11/17 05/11/17 19:59 03:59 11:59 Intake Total 5340 1050 2050 Output Total 350 850 Balance 4990 1050 1200 Lab Results Last 24 Hrs: Laboratory Results - last 24 hr 05/10/17 05/10/17 05/10/17 Range/Units 10:35 11:03 11:03 WBC 11.16 H (4.0-11.0) K/uL RBC 5.11 (4.50-5.90) M/uL Hgb 15.6 (13.0-17.0) g/dL Hct 43.1 (38.0-50.0) % MCV 84.3 (80.0-98.0) fL MCH 30.5 (27.0-32.0) pg MCHC 36.2 (31.0-37.0) g/dL RDW Std Deviation 37.3 (28.0-62.0) fl RDW Coeff of Carlie 12 (11.0-15.0) % Plt Count 290 (150-400) K/uL MPV 10.00 (7.40-12.00) fL Neut % (Auto) 76.8 (48.0-80.0) % Lymph % (Auto) 18.8 (16.0-40.0) % [place] % (Auto) 3.8 (0.0-15.0) % Eos % (Auto) 0.4 (0.0-7.0) % Baso % (Auto) 0.2 (0.0-1.5) % Neut # (Auto) 8.6 H (1.4-5.7) K/uL Lymph # (Auto) 2.1 (0.6-2.4) K/uL [place] # (Auto) 0.4 (0.0-0.8) K/uL Eos # (Auto) 0.0 (0.0-0.7) K/uL Baso # (Auto) 0.0 (0.0-0.1) K/uL Nucleated RBC % 0.0 /100WBC Nucleated RBCs # 0 K/uL Sodium 140 (136-146) mmol/L Potassium 3.7 (3.5-5.1) mmol/L Chloride 108 (98-110) mmol/L Carbon Dioxide 21 (21-31) mmol/L BUN 10 (6.0-23.0) mg/dL Creatinine 0.8 (0.6-1.5) mg/dL Est Cr Clr Drug Dosing 152.76 mL/min Estimated GFR (MDRD) > 60.0 ml/min Glucose 108 (60-110) mg/dL Calcium 9.8 (8.8-10.8) mg/dL Total Bilirubin 0.6 (0.1-1.5) mg/dL AST 25 (5-40) IU/L ALT 25 (8-54) IU/L Alkaline Phosphatase 68 (40-150) Total Protein 7.1 (6.0-8.0) g/dL Albumin 4.4 (3.5-5.0) g/dL Globulin 2.7 (2.0-3.5) g/dL Albumin/Globulin Ratio 1.6 (1.3-2.8) Amylase 45 (10-90) U/L Lipase 17 (7-80) U/L Urine Color YELLOW Urine Appearance CLEAR Urine pH 6.0 (5.0-8.0) Ur Specific [place] 1.010 (1.001-1.035) Urine Protein NEGATIVE (NEGATIVE) mg/dL Urine Glucose (UA) NEGATIVE (NEGATIVE) mg/dL Urine Ketones NEGATIVE (NEGATIVE) mg/dL Urine Occult Blood NEGATIVE (NEGATIVE) Urine Nitrite NEGATIVE (NEGATIVE) Urine Bilirubin NEGATIVE (NEGATIVE) Urine Urobilinogen 0.2 (<2.0) EU/dL Ur Leukocyte Esterase NEGATIVE (NEGATIVE) Urine RBC 0-1 (0-2/HPF) Urine WBC 0-1 (0-5/HPF) Ur Epithelial Cells RARE (NONE-FEW) Urine Bacteria RARE (NEGATIVE) Med Orders - Current: Current Medications Acetaminophen (Tylenol) 325 mg PO Q4H PRN PRN Reason: Fever Greater Than 101 Hydrocodone Bitart/Acetaminophen (Secretary 325-5 Mg) 1 - 2 tab PO Q4H PRN PRN Reason: Pain (moderate 4-6) Last Admin: 05/11/17 05:45 Dose: 2 tab Fentanyl (Sublimaze) 50 mcg IVPUSH .Q5MIN PRN PRN Reason: Pain Last Admin: 05/10/17 18:55 Dose: 50 mcg Hydromorphone HCl (Dilaudid) 0.5 mg IVPUSH .Q10MIN PRN PRN Reason: Pain Last Admin: 05/10/17 19:10 Dose: 1 mg Lactated Ringer's (Ringers, Lactated) 1,000 mls @ 150 mls/hr IV ASDIRECTED [facility] Last Admin: 05/10/17 13:37 Dose: 150 mls/hr Lactated Ringer's (Ringers, Lactated) 1,000 mls @ 125 mls/hr IV ASDIRECTED [facility] Last Admin: 05/11/17 05:51 Dose: 125 mls/hr Metoclopramide HCl (Reglan) 10 mg IVPUSH Q6H [facility] Last Admin: 05/11/17 06:01 Dose: 10 mg Morphine Sulfate (Morphine) 1 - 5 mg IVPUSH Q30M PRN PRN Reason: Pain (severe 7-10) Last Admin: 05/11/17 08:26 Dose: 3 mg Sodium Chloride (Saline Flush) 10 ml FLUSH ASDIRECTED PRN PRN Reason: Keep Vein Open Sodium Chloride (Saline Flush) 2.5 ml FLUSH ASDIRECTED PRN PRN Reason: Keep Vein Open Discontinued Medications Bupivacaine HCl (Sensorcaine-Mpf 0.5%) Confirm Administered Dose 20 ml .ROUTE .STK-MED ONE Stop: 05/10/17 14:35 Cefazolin Sodium (Ancef) Confirm Administered Dose 1 gm .ROUTE .STK-MED ONE Stop: 05/10/17 14:36 Cefoxitin Sodium (Mefoxin) Confirm Administered Dose 1 gm .ROUTE .STK-MED ONE Stop: 05/10/17 17:29 Dexamethasone (Dexamethasone) Confirm Administered Dose 20 mg .ROUTE .STK-MED ONE Stop: 05/10/17 17:49 Diphenhydramine HCl (Benadryl) Confirm Administered Dose 50 mg .ROUTE .STK-MED ONE Stop: 05/10/17 17:49 Fentanyl (Sublimaze) Confirm Administered Dose 250 mcg .ROUTE .STK-MED ONE Stop: 05/10/17 14:33 Hydromorphone HCl (Dilaudid) 1 mg IVPUSH ONETIME ONE Stop: 05/10/17 12:04 Last Admin: 05/10/17 12:09 Dose: 1 mg Hydromorphone HCl (Dilaudid) 1 mg IVPUSH ONETIME ONE Stop: 05/10/17 14:11 Last Admin: 05/10/17 14:58 Dose: 1 mg Hydromorphone HCl (Dilaudid) Confirm Administered Dose 2 mg .ROUTE .STK-MED ONE Stop: 05/10/17 18:04 Hydromorphone HCl (Dilaudid) 0.5 mg IV Q10M PRN PRN Reason: Pain Hydromorphone HCl (Dilaudid) Confirm Administered Dose 2 mg .ROUTE .STK-MED ONE Stop: 05/10/17 18:58 Sodium Chloride (Normal Saline) 1,000 mls @ 999 mls/hr IV STAT ONE Stop: 05/10/17 11:48 Last Admin: 05/10/17 11:09 Dose: 999 mls/hr Cefoxitin Sodium 1 gm/ Premix 50 mls @ 100 mls/hr IV ONETIME ONE Stop: 05/10/17 14:03 Last Admin: 05/10/17 14:06 Dose: 100 mls/hr Cefoxitin Sodium 1 gm/ Premix 50 mls @ 100 mls/hr IV ONETIME JOSE Cefoxitin Sodium 1 gm/ Premix 50 mls @ 100 mls/hr IV Q8H JOSE Stop: 05/11/17 06:29 Last Admin: 05/11/17 05:45 Dose: 100 mls/hr Iopamidol (Isovue Multipack-370 (76%)) 100 ml IVPUSH ONETIME STA Stop: 05/10/17 12:47 Last Admin: 05/10/17 20:33 Dose: Not Given Ketorolac Tromethamine (Toradol) 30 mg IVPUSH ONETIME ONE Stop: 05/10/17 10:49 Last Admin: 05/10/17 11:14 Dose: 30 mg Ketorolac Tromethamine (Toradol) Confirm Administered Dose 30 mg .ROUTE .STK- MED ONE Stop: 05/10/17 18:28 Lidocaine (Xylocaine-Mpf 2%) Confirm Administered Dose 5 ml .ROUTE .STK-MED ONE Stop: 05/10/17 14:32 Midazolam HCl (Versed 1 Mg/Ml) Confirm Administered Dose 2 mg .ROUTE .STK-MED ONE Stop: 05/10/17 14:33 Morphine Sulfate (Morphine) 2 mg IVPUSH ONETIME ONE Stop: 05/10/17 10:49 Last Admin: 05/10/17 11:15 Dose: 2 mg Ondansetron HCl (Zofran) 4 mg IVPUSH ONETIME ONE Stop: 05/10/17 10:49 Last Admin: 05/10/17 11:14 Dose: 4 mg Ondansetron HCl (Zofran) Confirm Administered Dose 4 mg .ROUTE .STK-MED ONE Stop: 05/10/17 14:32 Propofol (Diprivan 20 Ml) Confirm Administered Dose 200 mg .ROUTE .STK-MED ONE Stop: 05/10/17 14:33 Rocuronium Raymond (Zemuron) Confirm Administered Dose 100 mg .ROUTE .STK-MED ONE Stop: 05/10/17 14:32 Succinylcholine Chloride (Succinylcholine In Ns Pf) Confirm Administered Dose 200 mg .ROUTE .STK-MED ONE Stop: 05/10/17 14:33 - Exam Wound/Incisions: Dressing Dry and Intact, No Drainage General: Alert, Oriented, Cooperative, Mild Distress HEENT: Pupils Equal, Pupils Reactive, EOMI. No: Scleral Icterus Neck: Supple Lungs: Clear to Auscultation, Normal Respiratory Effort Cardiovascular: Regular Rate, Regular Rhythm. No: Tachycardia GI/Abdominal Exam: Normal Bowel Sounds, Soft, Non-Tender, No Distention, No Mass Extremities: Normal Inspection Skin: Warm, Dry, Intact Neurological: No New Focal Deficit Psy/Mental Status: Alert, Normal Affect, Normal Mood - Problem List & Annotations (1) Appendicitis SNOMED Code(s): 80429364 Code(s): K37 - UNSPECIFIED APPENDICITIS Status: Acute Priority: High Current Visit: Yes - Problem List Review Problem List Initiated/Reviewed/Updated: Yes - My Orders Last 24 Hours: Active Orders 24 hr Category Date Time Status Patient Status [ADT] Stat ADT 05/10/17 13:34 Active Antiembolic Devices [RC] PER UNIT ROUTINE Care 05/10/17 14:31 Active Communication Order [RC] STAT Care 05/10/17 10:48 Active Alfred Catheter Insertion [Insert Urinary Catheter] [OM. Care 05/10/17 14:30 Ordered PC] Q24H Alfred Catheter Insertion [Insert Urinary Catheter] [OM. Care 05/10/17 19:00 Ordered PC] Q24H Notify Provider Consults [RC] ASDIRECTED Care 05/10/17 19:07 Active Oxygen Therapy [RC] PRN Care 05/10/17 14:30 Active Oxygen Therapy [RC] PRN Care 05/10/17 18:57 Active Pulse Oximetry [RC] ASDIRECTED Care 05/10/17 18:57 Active Pulse Oximetry [RC] INTERMITTENT Care 05/10/17 14:30 Active RT Incentive Spirometry [RC] Q1HWA Care 05/10/17 18:57 Active Ready for Discharge [RC] PER UNIT ROUTINE Care 05/11/17 08:31 Ordered Up ad Shannan [RC] PER UNIT ROUTINE Care 05/10/17 18:57 Active Vital Signs [RC] PER UNIT ROUTINE Care 05/10/17 18:57 Active Consult to Physician [CONS] Stat Cons 05/10/17 19:05 Active Regular Diet [DIET] Diet 05/11/17 Breakfast Active Acetaminophen [Tylenol] Med 05/10/17 18:59 Active 325 mg PO Q4H PRN Acetaminophen/HYDROcodone [Secretary 325-5 MG] Med 05/10/17 18:59 Active 1 - 2 tab PO Q4H PRN HYDROmorphone [Dilaudid] Med 05/10/17 18:56 Active 0.5 mg IVPUSH .Q10MIN PRN Lactated Ringers [Ringers, Lactated] 1,000 ml Med 05/10/17 13:45 Active IV ASDIRECTED Lactated Ringers [Ringers, Lactated] 1,000 ml Med 05/10/17 19:00 Active IV ASDIRECTED Metoclopramide [Reglan] Med 05/10/17 19:00 Active 10 mg IVPUSH Q6H Morphine Med 05/10/17 18:59 Active 1 - 5 mg IVPUSH Q30M PRN Sodium Chloride 0.9% [Saline Flush] Med 05/10/17 10:47 Active 10 ml FLUSH ASDIRECTED PRN Sodium Chloride 0.9% [Saline Flush] Med 05/10/17 10:47 Active 2.5 ml FLUSH ASDIRECTED PRN fentaNYL [Sublimaze] Med 05/10/17 17:42 Active 50 mcg IVPUSH .Q5MIN PRN Antiembolic Hose [OM.PC] PER UNIT ROUTINE Oth 05/11/17 06:00 Ordered Saline Lock Insert [OM.PC] Stat Oth 05/10/17 10:47 Ordered Sequential Compression Device [OM.PC] Routine Oth 05/10/17 14:30 Ordered Resuscitation Status Routine Resus Stat 05/10/17 14:30 Ordered Medication Orders Acetaminophen (Tylenol) 325 mg PO Q4H PRN PRN Reason: Fever Greater Than 101 Hydrocodone Bitart/Acetaminophen (Secretary 325-5 Mg) 1 - 2 tab PO Q4H PRN PRN Reason: Pain (moderate 4-6) Last Admin: 05/11/17 05:45 Dose: 2 tab Admin: 05/10/17 21:24 Dose: 2 tab Fentanyl (Sublimaze) 50 mcg IVPUSH .Q5MIN PRN PRN Reason: Pain Last Admin: 05/10/17 18:55 Dose: 50 mcg Admin: 05/10/17 18:50 Dose: 50 mcg Hydromorphone HCl (Dilaudid) 0.5 mg IVPUSH .Q10MIN PRN PRN Reason: Pain Last Admin: 05/10/17 19:10 Dose: 1 mg Admin: 05/10/17 19:00 Dose: 1 mg Lactated Ringer's (Ringers, Lactated) 1,000 mls @ 150 mls/hr IV ASDIRECTED [facility] Last Admin: 05/10/17 13:37 Dose: 150 mls/hr Lactated Ringer's (Ringers, Lactated) 1,000 mls @ 125 mls/hr IV ASDIRECTED [facility] Last Admin: 05/11/17 05:51 Dose: 125 mls/hr Infusion: 05/11/17 05:20 Dose: 125 mls/hr Admin: 05/10/17 21:20 Dose: 125 mls/hr Metoclopramide HCl (Reglan) 10 mg IVPUSH Q6H [facility] Last Admin: 05/11/17 06:01 Dose: 10 mg Admin: 05/11/17 00:14 Dose: 10 mg Admin: 05/10/17 20:33 Dose: Morphine Sulfate (Morphine) 1 - 5 mg IVPUSH Q30M PRN PRN Reason: Pain (severe 7-10) Last Admin: 05/11/17 08:26 Dose: 3 mg Admin: 05/11/17 05:50 Dose: 5 mg Admin: 05/11/17 00:14 Dose: 5 mg Admin: 05/10/17 21:18 Dose: 5 mg Sodium Chloride (Saline Flush) 10 ml FLUSH ASDIRECTED PRN PRN Reason: Keep Vein Open Sodium Chloride (Saline Flush) 2.5 ml FLUSH ASDIRECTED PRN PRN Reason: Keep Vein Open - Assessment Assessment (Free Text/Narrative):: Patient has had a good night. He does still complain of some abdominal pain but this is different and less intense than before surgery. The Tegaderm dressings are all dry with minimal shadowing. The catheter has been removed and the patient has spontaneously voided. - Plan Plan (Free Text/Narrative):: Patient will be discharged from hospital today. I will see him when he gets back in town after May 24. He was instructed to wear his AMARI hose when he is traveling. He may shower over the dressings and remove them on postoperative day #2. He was given a prescription for Secretary 5/325 one tablet every 8 hours as needed for pain.
[2017-05-11 10:35] VITALS: BP 105/66
== END 2017-05-11 11:00 | disposition home or self-care (01) ==
LOC: MW.ED 10:17 → MW.SDS 13:34 → MW.MS 15:57 → MW.SDS 05-11 11:00
PROVIDERS: ATTEND Surgery
DX: K35.80 Unspecified acute appendicitis (principal); F17.290 Nicotine dependence, other tobacco product, uncomplicated; Z88.0 Allergy status to penicillin
CPT/HCPCS: 36415; 44970; 74177; 80053; 81001; 82150; 83690; 85025; 96361; 96365; 96375; 96376; 99285; A9270; J0694; J1100; J1170; J1200; J1885; J2250; J2270; J2405; J2765; J3010; J7040; J7120; 00840; 88304; J0690; J2704